=== PATIENT | male | born 1985 | race Caucasian/White ===

== ENCOUNTER 2019-03-03 17:08 | Emergency (ER) | payer OTHER, SELFPAY ==
[2019-03-03 17:11] VITALS: BP 154/107; PULSE 82; RESP 17; TEMP 37.2; O2SAT 100
[2019-03-03] MEDS: ONDANSETRON 4 MG/2 ML INJ IV (17:23)
[2019-03-03] MEDS: KETOROLAC 60 MG/2 ML VIAL 30 MG IV (17:23)
[2019-03-03] MEDS: SODIUM CHLORIDE 0.9% 1,000 ML 1000 ML IV ×2 (17:25→18:46)
[2019-03-03 17:33] LABS: Add Manual Diff / Slide Review NO; Basophils Absolute Auto 0 /uL (0-100); Basophils Percent Auto 0.2 % (0-2); Eosinophils Absolute Auto 0 /uL (0-450); Eosinophils Percent Auto 0.1 % (2-4); Hematocrit 46.7 % (41-53); Hemoglobin 15.6 g/dL (13.5-17.5); Lymphocytes Absolute Auto 900 /uL (1100-4500); Lymphocytes Percent Auto 5.7 % (25-40); Mean Corpuscular HGB Conc 33.5 % (30-36); Mean Corpuscular Hemoglobin 28.6 PG (26-34); Mean Corpuscular Volume 85.3 fL (80-100); Monocytes Absolute Auto 400 /uL (0-900); Monocytes Percent Auto 2.3 % (3-14); Neutrophils Absolute Auto 14900 /uL (1500-7000); Neutrophils Percent Auto 91.7 % (50-75); Platelet Count 317 X10^3/uL (150-400); Red Blood Cell Count 5.47 X10^6/uL (4.5-5.9); Red Cell Distribution Width 14.2 % (11.6-14.8); White Blood Cell Count 16.3 X10^3/uL (4.5-11.0)
[2019-03-03 17:46] LABS: INR 0.9 (0.9-1.3); Prothrombin Time 10.7 SECONDS (10.1-12.7)
--- NOTE | 2019-03-03 17:47 | DI.CT.S_ITS ---
PROCEDURE: CT KIDNEY URETER BLADDER (KUB) INDICATIONS: flank pain, hx stones TECHNIQUE: Noncontrast 5 mm thick sections acquired from the diaphragms to the symphysis. 5 mm thick coronal and sagittal reformats were then performed. For radiation dose reduction, the following was used: automated exposure control, adjustment of mA and/or kV according to patient size. COMPARISON: None. FINDINGS: Image quality: Excellent. Lung bases: Lung bases are clear. Heart size is normal. Urinary system: There is a 4 mm stone I. the left UVJ. There is mild left hydronephrosis and left ureterectasis. There is marked left perinephric stranding and trace perinephric fluid. Both kidneys are normal in size. There are a couple of 2 mm non-obstructing left kidney stones. No right renal stones or ureteral stones. Bladder wall thickness is normal; no calcified bladder stones. Other solid organs: Liver is normal in size. Gallbladder is normal. Pancreas is normal in contours. Spleen is normal in size. No adrenal nodules. Peritoneum and bowel: Unenhanced bowel loops demonstrate normal wall thickness and caliber. No free fluid or air. Nodes and vessels: No retroperitoneal or mesenteric adenopathy by size criteria. Aorta and inferior vena cava are normal in caliber. Abdominal wall: No ventral hernias. Pelvis: No free pelvic fluid. No inguinal hernias or adenopathy. There is hydrocele in scrotum bilaterally. Bones: No suspicious bony lesions. No vertebral body compression fractures. There is moderate to severe degenerative disc disease at L4-L5 and L5-S1 causing moderate central canal stenosis. IMPRESSION: 1. A 4 mm stone at the left UVJ. There is mild left hydronephrosis and hydroureter with marked left perinephric stranding. 2. A couple of 2 mm non-obstructing left renal calculi. 3. Moderate degenerative disc disease at L4-L5 and L5-S1 causing moderate central canal stenosis. Dictated by: Bria Tompkins M.D. on 03/03/2019 at 18:15 Approved by: Bria Tompkins M.D. on 03/03/2019 at 18:23
[2019-03-03 17:49] LABS: PTT Partial Thromboplastin Tim 33 SECONDS (26.4-36.2)
--- NOTE | 2019-03-03 18:01 | PC.NURSE ---
Left flank pain that is colicky in nature since this morning with nausea and vomiting. History of kidney stones and this feels the same.
[2019-03-03 18:10] LABS: Alanine Aminotransferase 38 IU/L (<50); Albumin 5.5 g/dL (3.5-5.0); Albumin Globulin Ratio 1.7 (1.0-2.8); Alkaline Phosphatase 86 U/L (38-126); Aspartate Aminotransferase 39 IU/L (17-59); BUN Creatinine Ratio 15.4 (6-22); Bilirubin Total 0.8 mg/dL (0.2-1.3); Blood Urea Nitrogen 20 mg/dL (9-20); Calcium 10.6 mg/dL (8.4-10.2); Carbon Dioxide 26 mmol/L (22-32); Chloride 102 mmol/L (98-107); Estimated Glomerular Filt Rate > 60.0 mL/min (>60); Globulin 3.3 g/dL (1.7-4.1); Glucose 108 mg/dL (70-100); HEMOLYSIS < 15 (0-50); Lipase 96 U/L (23-300); Sodium 140 mmol/L (137-145); Total Protein 8.8 g/dL (6.3-8.2)
[2019-03-03] MEDS: MORPHINE 4 MG/ML INJ IV (18:12)
[2019-03-03 18:35] VITALS: BP 156/102; PULSE 85; RESP 16; O2SAT 100
[2019-03-03] MEDS: HYDROMORPHONE 1 MG INJ IV (18:52)
[2019-03-03 19:25] VITALS: BP 158/103; PULSE 91; RESP 19; O2SAT 100
[2019-03-03 19:35] VITALS: BP 154/113; PULSE 90; RESP 16; O2SAT 100
[2019-03-03] MEDS: HYDROCODONE/ACET 5/325 TABLET 2 TAB PO (20:07)
[2019-03-03] MEDS: TAMSULOSIN 0.4 MG CAPSULE PO (20:07)
[2019-03-03 20:08] VITALS: BP 147/88; PULSE 88; RESP 18; O2SAT 99
[2019-03-03] MEDS: HYDROCODONE/ACET 5/325 PREPACK 1 BOTTLE MISC (20:08)
[2019-03-03] MEDS: KETOROLAC 10MG PREPACK 1 BOTTLE MISC (20:08)
[2019-03-03] MEDS: ONDANSETRON 4 MG ODT PREPACK 1 BOTTLE MISC (20:08)
--- NOTE | 2019-03-03 21:03 | ED.MALEGU ---
HPI - Male Genitourinary <ANKUSH Magana-BC - Last Filed: 03/03/19 21:08> General Chief complaint: Urogenital-Male Stated complaint: Thinks kidney stone, nausea and back pain Time Seen by Provider: 03/03/19 17:21 Source: patient Mode of arrival: Ambulatory Limitations: no limitations History of Present Illness HPI Narrative: The patient is a 33-year-old male presents with his for chief complaint of a probable kidney stone and left side. He has a history of kidney stones and states that this feels familiar. The pain is colicky in nature, comes and goes and is associated with nausea vomiting. He denies any dysuria urgency or frequency. He denies any hematuria. He has not taken anything for the pain. He does note that he takes [place] daily for his back pain. PCP as it is sick 1 he has not followed up with them since this started. He states he has vomited multiple times. Related Data Previous Rx's Medication Instructions Recorded hydrocodone-acetaminophen [[place]] 1 tab PO Q4-6H PRN #10 tab 03/03/19 ketorolac 10 mg PO TID PRN #14 tab 03/03/19 ondansetron 4 mg PO Q6H PRN #20 tab 03/03/19 tamsulosin [Flomax] 0.4 mg PO DAILY #6 cap 03/03/19 Allergies Allergy/AdvReac Type Severity Reaction Status Date / Time No Known Drug Allergies Allergy Verified 03/03/19 17:15 Review of Systems <ROGER Magana - Last Filed: 03/03/19 21:08> Review of Systems Narrative: GENERAL: Denies chills, fatigue, malaise, fever, sweats. HEENT: Denies sinus pain, ear pain, sore throat, difficulty swallowing, dizziness. RESPIRATORY: Denies dyspnea, cough, wheezing, hemoptysis, sputum. CARDIOVASCULAR: Denies chest pain, palpitations, orthopnea, edema, GASTROINTESTINAL: Denies nausea, vomiting, abdominal pain, diarrhea, constipation, melena. : See HPI MUSCULOSKELETAL: denies weakness, joint pain, or bony pain SKIN: Denies rash, skin lesions, or other NEUROLOGIC: Denies weakness, headache, numbness, change in speech, confusion, seizures, incoordination. PSYCHIATRIC: No concerning psychosocial issues. 12 point review of systems is negative except for those stated above Patient History <ROGER Magana - Last Filed: 03/03/19 21:08> Social History Smoking Status: Never smoker Smoking Status: Never smoker tobacco type: e-cigarettes and vaping alcohol intake frequency: a few times a week Substance Use Type: marijuana Exam <ROGER Magana - Last Filed: 03/03/19 21:08> Narrative Exam Narrative: GENERAL: This is a well-nourished, well-developed patient appears uncomfortable HEAD: Atraumatic. Normocephalic. No temporal or scalp tenderness. EYES: Pupils equal round and reactive. Extraocular motions intact. No scleral icterus. No injection or drainage. ENT: Nose without bleeding, purulent drainage or septal hematoma. Throat without erythema, tonsillar hypertrophy or exudate. Uvula midline. Airway patent. NECK: Trachea midline. No JVD or lymphadenopathy. Supple, nontender, no meningeal signs. CARDIOVASCULAR: Regular rate and rhythm RESPIRATORY: Clear to auscultation. Breath sounds equal bilaterally. No wheezes, rales, or rhonchi. No cough. No increased respiratory effort. No accessory muscle use. GASTROINTESTINAL: Abdomen soft, non-tender, nondistended. No hepato-splenomegaly, or palpable masses. No guarding. Active bowel sounds all 4 quadrants EXTREMITIES: No clubbing, cyanosis, or edema. No joint tenderness, effusion, or edema noted. BACK: Nontender without deformity or crepitance. CVA tenderness on left side, no CVA tenderness on right side NEURO: AOx3. SKIN: No rash or erythema on visible skin Initial Vital Signs Initial Vital Signs: Vital Signs Temperature 99 F 03/03/19 17:11 Pulse Rate 82 03/03/19 17:11 Respiratory Rate 17 03/03/19 17:11 Blood Pressure 154/107 H 03/03/19 17:11 Pulse Oximetry 100 03/03/19 17:11 <Emma Rodriguez DO - Last Filed: 03/04/19 04:23> Initial Vital Signs Initial Vital Signs: Vital Signs Temperature 99 F 03/03/19 17:11 Pulse Rate 82 03/03/19 17:11 Respiratory Rate 17 03/03/19 17:11 Blood Pressure 154/107 H 03/03/19 17:11 Pulse Oximetry 100 03/03/19 17:11 Course <ANKUSH Magana-BC - Last Filed: 03/03/19 21:08> Orders Ordered: Discontinued Medications Hydrocodone Bitart/Acetaminophen (Vicodin 5/325 Prepack) 1 bottle MISC SEEINSTR ONE Stop: 03/03/19 19:47 Last Admin: 03/03/19 20:08 Dose: 1 bottle Documented by: HENOK Hydrocodone Bitart/Acetaminophen ([place] 5/325) 2 tab PO NOW ONE Stop: 03/03/19 19:57 Last Admin: 03/03/19 20:07 Dose: 2 tab Documented by: HENOK Hydromorphone HCl (Dilaudid) 1 mg IV NOW ONE Stop: 03/03/19 18:50 Last Admin: 03/03/19 18:52 Dose: 1 mg Documented by: DONALDO Sodium Chloride (Normal Saline 0.9%) 1,000 mls @ 1,000 mls/hr IV BOLUS ONE Stop: 03/03/19 18:23 Last Infusion: 03/03/19 18:45 Dose: 0 mls/hr Documented by: Admin: 03/03/19 17:25 Dose: 1,000 mls/hr Documented by: CHAS Sodium Chloride (Normal Saline 0.9%) 1,000 mls @ 1,000 mls/hr IV BOLUS ONE Stop: 03/03/19 19:16 Last Infusion: 03/03/19 20:00 Dose: 0 mls/hr Documented by: Admin: 03/03/19 18:46 Dose: 1,000 mls/hr Documented by: DONALDO Ketorolac Tromethamine (Toradol) 30 mg IV NOW ONE Stop: 03/03/19 17:20 Last Admin: 03/03/19 17:23 Dose: 30 mg Documented by: CHAS Ketorolac Tromethamine (Toradol 10mg Prepack) 1 bottle MISC SEEINSTR ONE Stop: 03/03/19 19:47 Last Admin: 03/03/19 20:08 Dose: 1 bottle Documented by: HENOK Morphine Sulfate (Morphine) 4 mg IV NOW ONE Stop: 03/03/19 17:48 Last Admin: 12/07/19 18:12 Dose: 4 mg Documented by: DONALDO Ondansetron HCl (Zofran) 4 mg IV NOW ONE Stop: 03/03/19 17:18 Last Admin: 03/03/19 17:23 Dose: 4 mg Documented by: CHAS Ondansetron HCl (Zofran Odt Prepack) 1 bottle MISC SEEINSTR ONE Stop: 03/03/19 19:47 Last Admin: 03/03/19 20:08 Dose: 1 bottle Documented by: HENOK Ondansetron HCl (Zofran Odt) 4 mg SL NOW ONE Stop: 03/03/19 20:03 Last Admin: 03/03/19 20:09 Dose: Not Given Documented by: HENOK Tamsulosin HCl (Flomax) 0.4 mg PO NOW ONE Stop: 03/03/19 19:25 Last Admin: 03/03/19 20:07 Dose: 0.4 mg Documented by: HENOK Vital Signs Vital signs: Vital Signs - 8 hr 03/03/19 17:11 03/03/19 19:25 03/03/19 20:08 Temperature 99 F Pulse Rate 82 91 H 88 Respiratory Rate 17 19 18 Blood Pressure 154/107 H Blood Pressure [Left Arm] 158/103 H 147/88 H Pulse Oximetry 100 100 99 <Emma Rodriguez, - Last Filed: 03/04/19 04:23> Orders Ordered: Discontinued Medications Hydrocodone Bitart/Acetaminophen (Vicodin 5/325 Prepack) 1 bottle MISC SEEINSTR ONE Stop: 03/03/19 19:47 Last Admin: 03/03/19 20:08 Dose: 1 bottle Documented by: HENOK Hydrocodone Bitart/Acetaminophen ([place] 5/325) 2 tab PO NOW ONE Stop: 03/03/19 19:57 Last Admin: 03/03/19 20:07 Dose: 2 tab Documented by: HENOK Hydromorphone HCl (Dilaudid) 1 mg IV NOW ONE Stop: 03/03/19 18:50 Last Admin: 03/03/19 18:52 Dose: 1 mg Documented by: DONALDO Sodium Chloride (Normal Saline 0.9%) 1,000 mls @ 1,000 mls/hr IV BOLUS ONE Stop: 03/03/19 18:23 Last Infusion: 03/03/19 18:45 Dose: 0 mls/hr Documented by: Admin: 03/03/19 17:25 Dose: 1,000 mls/hr Documented by: CHAS Sodium Chloride (Normal Saline 0.9%) 1,000 mls @ 1,000 mls/hr IV BOLUS ONE Stop: 03/03/19 19:16 Last Infusion: 03/03/19 20:00 Dose: 0 mls/hr Documented by: Admin: 03/03/19 18:46 Dose: 1,000 mls/hr Documented by: DONALDO Ketorolac Tromethamine (Toradol) 30 mg IV NOW ONE Stop: 03/03/19 17:20 Last Admin: 03/03/19 17:23 Dose: 30 mg Documented by: CHAS Ketorolac Tromethamine (Toradol 10mg Prepack) 1 bottle MISC SEEINSTR ONE Stop: 03/03/19 19:47 Last Admin: 03/03/19 20:08 Dose: 1 bottle Documented by: HENOK Morphine Sulfate (Morphine) 4 mg IV NOW ONE Stop: 03/03/19 17:48 Last Admin: 03/03/19 18:12 Dose: 4 mg Documented by: DONALDO Ondansetron HCl (Zofran) 4 mg IV NOW ONE Stop: 03/03/19 17:18 Last Admin: 03/03/19 17:23 Dose: 4 mg Documented by: CHAS Ondansetron HCl (Zofran Odt Prepack) 1 bottle MISC SEEINSTR ONE Stop: 03/03/19 19:47 Last Admin: 03/03/19 20:08 Dose: 1 bottle Documented by: HENOK Ondansetron HCl (Zofran Odt) 4 mg SL NOW ONE Stop: 03/03/19 20:03 Last Admin: 03/03/19 20:09 Dose: Not Given Documented by: HENOK Tamsulosin HCl (Flomax) 0.4 mg PO NOW ONE Stop: 03/03/19 19:25 Last Admin: 03/03/19 20:07 Dose: 0.4 mg Documented by: HENOK Vital Signs Vital signs: Vital Signs - 8 hr 03/03/19 17:11 03/03/19 19:25 03/03/19 20:08 Temperature 99 F Pulse Rate 82 91 H 88 Respiratory Rate 17 19 18 Blood Pressure 154/107 H Blood Pressure [Left Arm] 158/103 H 147/88 H Pulse Oximetry 100 100 99 MDM - Male Genitourinary <Emma García, B[employer]IDER- - Last Filed: 03/03/19 21:08> Lab Data Result diagrams: 03/03/19 17:26 03/03/19 17:26 Labs: Lab Results 03/03/19 03/03/19 03/03/19 Range/Units 17:26 17:26 17:26 WBC 16.3 H (4.5-11.0) X10^3/uL RBC 5.47 (4.5-5.9) X10^6/uL Hgb 15.6 (13.5-17.5) g/dL Hct 46.7 (41-53) % MCV 85.3 (80-100) fL MCH 28.6 (26-34) PG MCHC 33.5 (30-36) % RDW 14.2 (11.6-14.8) % Plt Count 317 (150-400) X10^3/uL Neut % (Auto) 91.7 H (50-75) % Lymph % (Auto) 5.7 L (25-40) % [place] % (Auto) 2.3 L (3-14) % Eos % (Auto) 0.1 L (2-4) % Baso % (Auto) 0.2 (0-2) % Neut # (Auto) 87246 H (5474-3629) /uL Lymph # (Auto) 900 L (6429-2949) /uL [place] # (Auto) 400 (0-900) /uL Eos # (Auto) 0 (0-450) /uL Baso # (Auto) 0 (0-100) /uL PT 10.7 (10.1-12.7) SECONDS INR 0.9 (0.9-1.3) APTT 33 (26.4-36.2) SECONDS Sodium 140 (137-145) mmol/L Potassium 4.0 (3.4-5.1) mmol/L Chloride 102 (98-107) mmol/L Carbon Dioxide 26 (22-32) mmol/L BUN 20 (9-20) mg/dL Creatinine 1.30 H (0.66-1.25) mg/dL Estimated GFR > 60.0 (>60) mL/min BUN/Creatinine Ratio 15.4 (6-22) Glucose 108 H (70-100) mg/dL Calcium 10.6 H (8.4-10.2) mg/dL Total Bilirubin 0.8 (0.2-1.3) mg/dL AST 39 (17-59) IU/L ALT 38 (<50) IU/L Alkaline Phosphatase 86 (38-126) U/L Total Protein 8.8 H (6.3-8.2) g/dL Albumin 5.5 H (3.5-5.0) g/dL Globulin 3.3 (1.7-4.1) g/dL Albumin/Globulin Ratio 1.7 (1.0-2.8) Lipase 96 (23-300) U/L Urine Dip Bedside Urine Glucose Negative Bedside Urine Bilirubin - Negative Bedside Urine Ketone ++ 40 Urine Specific [place] 1.010 Bedside Urine Occult Blood - Negative Bedside Urine pH 8.0 Bedside Urine Protein - Negative Bedside Urine Urobilinogen - Negative Bedside Urine Nitrite - Negative Bedside Urine Leukocytes - Negative Esterase Imaging Data CT scan - abdomen: Radiologist's impression: [place] [address] CT Scan Report Signed Patient: Rajan Lester EMR#: [id number] : 1985Acct:[id number] Age/Sex: 33 / MDate of Service: 03/03/19 Loc: ED Accession Number: [id number] Procedure: CT kidney ureter bladder (KUB) Ordering Provider: Emma García [facility] [place] [facility]- PROCEDURE: CT KIDNEY URETER BLADDER (KUB) INDICATIONS: flank pain, hx stones TECHNIQUE: Noncontrast 5 mm thick sections acquired from the diaphragms to the symphysis. 5 mm thick coronal and sagittal reformats were then performed. For radiation dose reduction, the following was used: automated exposure control, adjustment of mA and/or kV according to patient size. COMPARISON: None. FINDINGS: Image quality: Excellent. Lung bases: Lung bases are clear. Heart size is normal. Urinary system: There is a 4 mm stone I. the left UVJ. There is mild left hydronephrosis and left ureterectasis. There is marked left perinephric stranding and trace perinephric fluid. Both kidneys are normal in size. There are a couple of 2 mm non-obstructing left kidney stones. No right renal stones or ureteral stones. Bladder wall thickness is normal; no calcified bladder stones. Other solid organs: Liver is normal in size. Gallbladder is normal. Pancreas is normal in contours. Spleen is normal in size. No adrenal nodules. Peritoneum and bowel: Unenhanced bowel loops demonstrate normal wall thickness and caliber. No free fluid or air. Nodes and vessels: No retroperitoneal or mesenteric adenopathy by size criteria. Aorta and inferior vena cava are normal in caliber. Abdominal wall: No ventral hernias. Pelvis: No free pelvic fluid. No inguinal hernias or adenopathy. There is hydrocele in scrotum bilaterally. Bones: No suspicious bony lesions. No vertebral body compression fractures. There is moderate to severe degenerative disc disease at L4-L5 and L5-S1 causing moderate central canal stenosis. IMPRESSION: 1. A 4 mm stone at the left UVJ. There is mild left hydronephrosis and hydroureter with marked left perinephric stranding. 2. A couple of 2 mm non-obstructing left renal calculi. 3. Moderate degenerative disc disease at L4-L5 and L5-S1 causing moderate central canal stenosis. Dictated by: Bria Tompkins M.D. on 03/03/2019 at 18:15 Approved by: Bria Tompkins M.D. on 03/03/2019 at 18:23 MDM Narrative Medical decision making narrative: The patient is a 33-year-old male who presents with sudden onset of left flank pain that is colicky in nature at 12:30 p.m. this afternoon. He has associated significant nausea vomiting and pain in his left flank. He has no pain in his right flank. He has a history of kidney stones and believes that this is another one. CT shows 4 mm stone at UVJ on his left side. Urine has no signs of infection, no leukocyte esterase or bacteria or nitrites at this point time. He does have leukocytosis, however this could be inflammatory related to profuse nausea and vomiting. He is afebrile and hemodynamically stable throughout stay in the emergency department. Patient was able to tolerate p.o. trial in the emergency department. He was given morphine, Dilaudid, 2 L of IV fluid and Zofran in the emergency department. He has a history of chronic pain, related to a back injury and takes [place] at home. Is given Toradol as well. Patient is given prescriptions of Toradol, [place], Zofran and Flomax. He plans on following up with primary care provider on Tuesday, and we discussed the possibility of a urology referral. Discussed monitoring for signs of infection including fevers, inability keep down fluids, dysuria cetera. Discussed that these need to be followed up immediately. Discussed not using at that NSAIDs with Toradol. Discussed pushing fluids and straining urine. Did discuss creatinine of 1.3, encouraged follow-up with PCP. <Emma Rodriguez, DO - Last Filed: 03/04/19 04:23> Lab Data Labs: Lab Results 03/03/19 03/03/19 03/03/19 Range/Units 17:26 17:26 17:26 WBC 16.3 H (4.5-11.0) X10^3/uL RBC 5.47 (4.5-5.9) X10^6/uL Hgb 15.6 (13.5-17.5) g/dL Hct 46.7 (41-53) % MCV 85.3 (80-100) fL MCH 28.6 (26-34) PG MCHC 33.5 (30-36) % RDW 14.2 (11.6-14.8) % Plt Count 317 (150-400) X10^3/uL Neut % (Auto) 91.7 H (50-75) % Lymph % (Auto) 5.7 L (25-40) % [place] % (Auto) 2.3 L (3-14) % Eos % (Auto) 0.1 L (2-4) % Baso % (Auto) 0.2 (0-2) % Neut # (Auto) 69426 H (8290-0748) /uL Lymph # (Auto) 900 L (4921-2069) /uL [place] # (Auto) 400 (0-900) /uL Eos # (Auto) 0 (0-450) /uL Baso # (Auto) 0 (0-100) /uL PT 10.7 (10.1-12.7) SECONDS INR 0.9 (0.9-1.3) APTT 33 (26.4-36.2) SECONDS Sodium 140 (137-145) mmol/L Potassium 4.0 (3.4-5.1) mmol/L Chloride 102 (98-107) mmol/L Carbon Dioxide 26 (22-32) mmol/L BUN 20 (9-20) mg/dL Creatinine 1.30 H (0.66-1.25) mg/dL Estimated GFR > 60.0 (>60) mL/min BUN/Creatinine Ratio 15.4 (6-22) Glucose 108 H (70-100) mg/dL Calcium 10.6 H (8.4-10.2) mg/dL Total Bilirubin 0.8 (0.2-1.3) mg/dL AST 39 (17-59) IU/L ALT 38 (<50) IU/L Alkaline Phosphatase 86 (38-126) U/L Total Protein 8.8 H (6.3-8.2) g/dL Albumin 5.5 H (3.5-5.0) g/dL Globulin 3.3 (1.7-4.1) g/dL Albumin/Globulin Ratio 1.7 (1.0-2.8) Lipase 96 (23-300) U/L Urine Dip Bedside Urine Glucose Negative Bedside Urine Bilirubin - Negative Bedside Urine Ketone ++ 40 Urine Specific [place] 1.010 Bedside Urine Occult Blood - Negative Bedside Urine pH 8.0 Bedside Urine Protein - Negative Bedside Urine Urobilinogen - Negative Bedside Urine Nitrite - Negative Bedside Urine Leukocytes - Negative Esterase Discharge Plan Departure Patient Disposition: Home Clinical Impression: Calculus of left ureter, Left nephrolithiasis Discharge Date/Time: 03/03/19 20:37 Instructions: DI for Kidney Stones Activity Restrictions/Additional Instructions: Today we found a 4 mm stone at your left ureter vesicular junction. This is where the ureter enters your bladder from the kidney. There is some fluid back up into your kidney from the stone. Please follow-up with primary care provider, you may need a referral to Urology. I have placed you on Flomax to help the stone pass, Toradol, [place] for pain as well as Zofran for nausea. You have been prescribed narcotic medications. While on these medications you cannot drive or operate heavy machinery. Additionally you cannot sign legal documents or perform any duties such as this. Many people get constipated on narcotic medications so it would be advisable to discuss stool softeners with the pharmacist when you mixing picker tender your prescription. Please understand that we cannot provide further refills of narcotics or controlled substances through the ED and your pain management will need to be through your Primary Care Provider I have given you a prescription of Toradol. This is an NSAID. Do not combine it with other NSAIDs such as Aleve or ibuprofen. I suggest taking it with some food, as it can irritate your stomach. Please monitor for signs of infection, you did not have any signs of infection in your urine today. Please be re-evaluated if those occur. Please also be re-evaluated if it develops fever, are unable to keep down fluids etcetera. Prescriptions: New tamsulosin [Flomax] 0.4 mg capsule 0.4 mg PO DAILY Qty: 6 RF: 0 hydrocodone-acetaminophen [[place]] 5-325 mg tablet 1 tab PO Q4-6H PRN (Reason: pain) Qty: 10 RF: 0 ondansetron 4 mg tablet,disintegrating 4 mg PO Q6H PRN (Reason: nausea and vomiting) Qty: 20 RF: 0 ketorolac 10 mg tablet 10 mg PO TID PRN (Reason: pain) Qty: 14 RF: 0
--- NOTE | 2019-03-03 22:21 | PC.NURSE ---
2015 Patient given a urinal and strainer.
== END 2019-03-03 20:37 | disposition home or self-care (01) ==
PROVIDERS: Emergency Medicine; Emergency Provider Nurse Practitioner Family
DX: N20.2 Calculus of kidney with calculus of ureter (principal); Z87.442 Personal history of urinary calculi; R11.2 Nausea with vomiting, unspecified
CPT/HCPCS: 36415; 74176; 80053; 81003; 83690; 85025; 85610; 85730; 96361; 96374; 96375; 99283; 99284; J1170; J1885; J2270; J2405